=== PATIENT | male | born 1945 | race Caucasian/White ===

== ENCOUNTER 2018-08-24 01:36 | Emergency (ER) | payer MEDICARE, BC ==
[2018-08-24] MEDS ORDERED: MVI, Adult with Vitamin K 10 ML, Folic Acid 1 MG, Thiamine 100 MG in Lactated Ringers 1... IV ONE ×4 (02:52)
--- NOTE | 2018-08-24 03:06 | EDM.PDOC ---
ED HPI GENERAL MEDICAL PROBLEM - General Chief Complaint: Head Injury Stated Complaint: CONCUSSION Time Seen by Provider: 08/24/18 02:55 Source of Information: Reports: Patient, EMS History Limitations: Reports: Intoxication - History of Present Illness INITIAL COMMENTS - FREE TEXT/NARRATIVE: EMS state patrons in bar saw pt fall off bar stool and hit head and went unconscious. pt states can't remember that. presently has some pain in head and face does hurt. - Related Data Allergies Allergy/AdvReac Type Severity Reaction Status Date / Time No Known Allergies Allergy Verified 08/24/18 01:52 Home Meds: Home Meds . [Unable to Verify Home Med List] 08/24/18 [History] Past Medical History - Past Health History Medical/Surgical History: Denies Medical/Surgical History Social & Family History - Tobacco Use Smoking Status *Q: Current Status Unknown - Caffeine Use Caffeine Use: Reports: Coffee - Alcohol Use Date of Last Drink: 08/24/18 - Recreational Drug Use Recreational Drug Use: No ED ROS GENERAL - Review of Systems Review Of Systems: ROS reveals no pertinent complaints other than HPI. ED EXAM, HEAD INJURY - Physical Exam Exam: See Below Exam Limited By: No Limitations General Appearance: WD/WN, No Apparent Distress, Other (sleeping arousable) Head: Facial Swelling, Facial Tenderness, Other (cheeks). No: Bailey's Sign, Raccoon Eyes Nexus Criteria: Evidence of Intoxication. No: Posterior, Midline Cervical Tenderness, Altered Level of Consciousness, Focal Neurological Deficit, Painful Distraction Injuries Eyes: Bilateral Eye: PERRL (pupils ER @ 4mm) Ears: Hearing Grossly Normal Nose: Normal Inspection Throat/Mouth: Normal Voice, No Airway Compromise Neck: Non-Tender, Full Range of Motion, Normal Alignment, Normal Inspection Respiratory: No Respiratory Distress, Lungs Clear, Normal Breath Sounds Cardiovascular: Regular Rate, Rhythm GI/Abdominal Exam: Soft, Non-Tender Neurologic: Other (intox) Skin: Normal Color, Warm/Dry - [place] Coma Score Best Eye Response ([place]): (3) Open to Voice Best Verbal Response ([place]): (4) Confused Conversation Best Motor Response ([place]): (6) Obeys Commands [place] Total: 13 Course - Vital Signs Last Recorded V/S: Last Vital Signs Temp 36.4 C 08/24/18 05:47 Pulse 76 08/24/18 05:47 Resp 18 08/24/18 05:47 BP 132/76 08/24/18 05:47 Pulse Ox 100 08/24/18 05:47 - Orders/Labs/Meds Labs: Laboratory Tests 08/24/18 08/24/18 Range/Units 03:10 03:10 WBC 5.4 (5.0-10.0) 10^3/uL RBC 4.17 L (4.6-6.2) 10^6/uL Hgb 13.7 L (14.0-18.0) g/dL Hct 41.2 (40.0-54.0) % MCV 98.8 (80-100) fL MCH 32.9 (27.0-34.0) pg MCHC 33.3 (33.0-35.0) g/dL Plt Count 127 L (150-450) 10^3/uL Neut % (Auto) 78.8 H (42.2-75.2) % Lymph % (Auto) 12.6 L (20.5-50.1) % Mclean % (Auto) 6.7 (2-8) % Eos % (Auto) 1.5 (1.0-3.0) % Baso % (Auto) 0.4 (0.0-1.0) % Sodium 132 L (135-145) mmol/L Potassium 3.5 L (3.6-5.0) mmol/L Chloride 96 L (101-111) mmol/L Carbon Dioxide 23.0 (21.0-31.0) mmol/L Anion Gap 16.5 BUN 13 (7-18) mg/dL Creatinine 1.0 (0.6-1.3) mg/dL Est Cr Clr Drug Dosing 72.16 mL/min Estimated GFR (MDRD) > 60 BUN/Creatinine Ratio 13.00 Glucose 121 H (74-105) mg/dL Calcium 8.5 (8.4-10.2) mg/dl Total Bilirubin 0.8 (0.2-1.0) mg/dL AST 23 (10-42) IU/L ALT 16 (10-60) IU/L Alkaline Phosphatase 46 (42-121) IU/L Total Protein 6.4 L (6.7-8.2) g/dl Albumin 4.2 (3.2-5.5) g/dl Globulin 2.2 Albumin/Globulin Ratio 1.91 Ethyl Alcohol 223 mg/dL Meds: Medications Discontinued Medications Generic Name Dose Route Start Last Admin Trade Name Luke PRN Reason Stop Dose Admin Multivitamins/Minerals 10 ml/ 1,011.2 mls @ 999 mls/hr 08/24/18 02:52 03:07 Folic Acid 1 mg/ Thiamine HCl IV 08/24/18 03:52 999 mls/hr 100 mg/ Lactated Ringer's ONETIME ONE Administration - Re-Assessments/Exams Free Text/Narrative Re-Assessment/Exam: 08/24/18 05:39 pt woke up dashed to bathroom. Departure - Departure Time of Disposition: 05:55 Disposition: Home, Self-Care 01 Condition: Fair Clinical Impression: Concussion with less than 1 hour loss of consciousness Contusion of face Qualifiers: Encounter type: initial encounter Qualified Code(s): S00.83XA - Contusion of other part of head, initial encounter - Discharge Information Instructions: Head Injury, Adult, [id number] Forms: ED Department Discharge Additional Instructions: 1) don't drink alcohol 2) take tylenol as needed for discomfort 3) recheck if there is any change or concern
[2018-08-24 03:38] LABS: ANION GAP 16.5; CHLORIDE,CL 96 mmol/L (101-111); SODIUM,NA 132 mmol/L (135-145)
== END 2018-08-24 05:59 | disposition home or self-care (01) ==
LOC: DL.ED 01:36
DX: S06.0X9A Concussion with loss of consciousness of unspecified duration, initial encounter (principal); S00.83XA Contusion of other part of head, initial encounter; W08.XXXA Fall from other furniture, initial encounter; Y92.838 Other recreation area as the place of occurrence of the external cause
CPT/HCPCS: 36415; 70450; 70486; 80053; 85025; 96365; 96366; 99284; G0480; J3411; J7120; J3490

== ENCOUNTER 2022-05-01 04:20 | Emergency (ER) | payer BC ==
[2022-05-01] MEDS ORDERED: Sodium Chloride 0.9% 1,000 ML IV ONE (16:30)
[2022-05-01] MEDS ORDERED: Diltiazem 25 MG/5 ML SDV IV ONE (16:38)
[2022-05-26 10:46] LABS: ANION GAP 13.8 mEq/L (7-13); CHLORIDE,CL 101 mmol/L (98-107); ESTIMATED GFR 70 mL/min (>=60); SODIUM,NA 138 mmol/L (136-145)
[2022-05-26 10:47] LABS: PTT,PARTIAL THROMBOPLSTIN TIME 30.9 SEC (22.0-34.0)
[2022-05-26 10:49] LABS: CORONAVIRUS COVID-19 NAA NEGATIVE (NEGATIVE)
== END 2022-05-01 17:50 | disposition left against medical advice (07) ==
LOC: DL.ED 04:20 → EDSTATUS 08:04 → DL.ED 17:50
DX: I49.9 Cardiac arrhythmia, unspecified (principal); J18.9 Pneumonia, unspecified organism; Z20.822 Contact with and (suspected) exposure to COVID-19
CPT/HCPCS: 0240U; 36415; 71045; 80053; 83735; 84443; 84484; 85025; 85610; 85730; 99285; J3490; J7030

== ENCOUNTER 2023-11-20 15:41 | Emergency (ER) | payer MEDICARE, BC ==
[2023-11-20] MEDS: Sodium Chloride 0.9% 10 ML Syringe FLUSH PRN (16:00)
[2023-11-20 16:16] LABS: MEAN CORPUSCULAR HEMOGLOBIN 32.7 pg (27.0-34.0); MEAN CORPUSCULAR HGB CONC 34.1 g/dL (33.0-35.0); MEAN CORPUSCULAR VOLUME 95.8 fL (80-100); PLATELET COUNT,PLT 132 10^3/uL (150-450); RED BLOOD CELL COUNT 4.28 10^6/uL (4.6-6.2); WHITE BLOOD CELL COUNT,WBC 10.3 10^3/uL (5.0-10.0)
[2023-11-20] MEDS: Aspirin 81 MG Tab.Chew PO ONE (16:17)
[2023-11-20] MEDS: Diltiazem 25 MG/5 ML SDV IVPUSH ONE (16:20)
[2023-11-20 16:27] LABS: BASOPHILS PERCENT AUTO 0.2 % (0.0-1.0); LYMPHOCYTES PERCENT AUTO 8.6 % (20.5-50.1); MONOCYTES PERCENT AUTO 7.5 % (2-8); NEUTROPHILS PERCENT AUTO 83.7 % (42.2-75.2)
[2023-11-20 16:28] LABS: ALBUMIN 3.8 g/dL (3.4-5.0); BILIRUBIN TOTAL 1.5 mg/dL (0.2-1.0); BUN/CREATININE RATIO 15.8 (No establ ref range); CALCIUM 8.9 mg/dL (8.5-10.1); CREATININE 1.46 mg/dL (0.70-1.30); EST CRCL DRUG DOSING (CG) 45.84 mL/min; PROTEIN TOTAL,TP 7.6 g/dL (6.4-8.2)
[2023-11-20 16:39] LABS: PROTHROMBIN TIME 9.9 SEC (9.0-12.0)
[2023-11-20] MEDS: cefTRIAXone 1 GM Vial IVPUSH ONE (17:01)
[2023-11-20] MEDS: Azithromycin 500 MG in Sodium Chloride 0.9% 250 ML IV ONE (17:03)
[2023-11-20] MEDS: Azithromycin 250 MG Tab PO ONE (17:05)
[2023-11-20] MEDS: Acetaminophen 325 MG Tab PO ONE (17:10)
[2023-11-20 17:15] LABS: CORONAVIRUS COVID-19 NAA NEGATIVE (NEGATIVE); INFLUENZA A NAA NEGATIVE (NEGATIVE); INFLUENZA B NAA NEGATIVE (NEGATIVE); RESPIRATORY SYNCYTIAL VIR NAA POSITIVE (NEGATIVE)
[2023-11-20 17:15] LABS: LYMPHOCYTES % ATYPICAL MANUAL 1 %; LYMPHOCYTES PERCENT MAN 14 % (20-50); MONOCYTES PERCENT MAN 4 % (2-8); SEG NEUTROPHILS PERCENT MAN 81 % (42-75)
[2023-11-20] MEDS: Albuterol/Ipratropium 3.0-0.5 MG/3 ML Neb Soln NEB ONE (17:20)
[2023-11-20] MEDS: predniSONE 20 MG Tab PO ONE (17:59)
== END 2023-11-20 18:15 | disposition home or self-care (01) ==
LOC: DL.ED 15:41
DX: J18.9 Pneumonia, unspecified organism (principal); R00.0 Tachycardia, unspecified; B97.4 Respiratory syncytial virus as the cause of diseases classified elsewhere
CPT/HCPCS: 0241U; 36415; 71046; 80053; 83605; 83880; 84484; 85025; 85610; 87040; 93005; 96374; 96375; 99285; A9270; J0696; J3490; J7512; J7620-GY

== ENCOUNTER 2025-06-06 11:27 | Emergency (ER) | payer BC ==
[2025-06-06] MEDS: Iopamidol 612 MG/ML 100 ML Bottle IVPUSH ONE (12:06)
[2025-06-06] MEDS ORDERED: Sodium Chloride 0.9% 10 ML Syringe FLUSH PRN (12:06)
[2025-06-06 12:09] LABS: BASOPHILS PERCENT AUTO 0.5 % (0.0-1.0); EOSINOPHILS PERCENT AUTO 0.8 % (1.0-3.0); LYMPHOCYTES PERCENT AUTO 17.2 % (20.5-50.1); MONOCYTES PERCENT AUTO 8.4 % (2-8); NEUTROPHILS PERCENT AUTO 73.1 % (42.2-75.2); PLATELET COUNT,PLT 140 10^3/uL (150-450); RED BLOOD CELL COUNT 4.17 10^6/uL (4.6-6.2); WHITE BLOOD CELL COUNT,WBC 6.3 10^3/uL (5.0-10.0)
[2025-06-06 12:24] LABS: A/G RATIO 1.3; ALANINE AMINOTRANSFERASE,ALT 14.0 U/L (16-63); ASPARTATE AMNIOTRANSFERASE,AST 13.0 U/L (15-37); BILIRUBIN TOTAL 1.1 mg/dL (0.2-1.0); BLOOD UREA NITROGEN,BUN 20.0 mg/dL (7-18); CARBON DIOXIDE,CO2 27.0 mmol/L (21-32); CHLORIDE,CL 104.0 mmol/L (98-107); CREATININE 1.74 mg/dL (0.70-1.30); EST CRCL DRUG DOSING (CG) 38.64 mL/min; GLUCOSE RANDOM 140.0 mg/dL (70-99); POTASSIUM,K 3.4 mmol/L (3.5-5.1); PROTEIN TOTAL,TP 6.8 g/dL (6.4-8.2); SODIUM,NA 141.0 mmol/L (136-145)
[2025-06-06 12:28] LABS: ESTIMATED GFR 40.0 mL/min (>=60)
[2025-06-06 12:32] LABS: APPEARANCE,URINE CLEAR (CLEAR); GLUCOSE,URINE NEGATIVE (NEGATIVE); OCCULT BLOOD,URINE MODERATE (NEGATIVE)
[2025-06-06 12:43] LABS: EPITHELIAL CELLS,URINE FEW /HPF (NOT SEEN)
[2025-06-06] MEDS: Ketorolac 30 MG/ML SDV IVPUSH ONE (13:48)
[2025-06-06] MEDS: Take Home: Acetaminophen/HYDROcodone 325-5 MG, 5 Tab Pack PO ONE (14:08)
[2025-06-06 14:20] VITALS: BP 128/72; PULSE 68
== END 2025-06-06 14:16 | disposition home or self-care (01) ==
LOC: DL.ED 11:27
DX: N13.2 Hydronephrosis with renal and ureteral calculous obstruction (principal); I71.22 Aneurysm of the aortic arch, without rupture; Z79.899 Other long term (current) drug therapy
CPT/HCPCS: 36415; 74177; 80053; 81001; 83605; 85025; 87040; 87186; 96361; 96374; 99284; 99284-25; A9270-GY; J1885; J7030; Q9967

== ENCOUNTER 2025-06-12 13:00 | Emergency (ER) | payer BC ==
[2025-06-12] MEDS ORDERED: Sodium Chloride 0.9% 10 ML Syringe FLUSH PRN (13:12)
[2025-06-12 13:30] LABS: BASOPHILS PERCENT AUTO 0.7 % (0.0-1.0); EOSINOPHILS PERCENT AUTO 1.3 % (1.0-3.0); LYMPHOCYTES PERCENT AUTO 21.7 % (20.5-50.1); MONOCYTES PERCENT AUTO 7.3 % (2-8); NEUTROPHILS PERCENT AUTO 69.0 % (42.2-75.2); PLATELET COUNT,PLT 158 10^3/uL (150-450); RED BLOOD CELL COUNT 4.02 10^6/uL (4.6-6.2); WHITE BLOOD CELL COUNT,WBC 4.5 10^3/uL (5.0-10.0)
[2025-06-12 13:47] LABS: A/G RATIO 1.3; ALANINE AMINOTRANSFERASE,ALT 12 U/L (16-63); ASPARTATE AMNIOTRANSFERASE,AST 16 U/L (15-37); BILIRUBIN TOTAL 0.9 mg/dL (0.2-1.0); BLOOD UREA NITROGEN,BUN 17 mg/dL (7-18); CARBON DIOXIDE,CO2 26 mmol/L (21-32); CHLORIDE,CL 106 mmol/L (98-107); CREATININE 1.10 mg/dL (0.70-1.30); EST CRCL DRUG DOSING (CG) 61.73 mL/min; GLUCOSE RANDOM 107 mg/dL (70-99); POTASSIUM,K 3.6 mmol/L (3.5-5.1); PROTEIN TOTAL,TP 7.0 g/dL (6.4-8.2); SODIUM,NA 142 mmol/L (136-145)
[2025-06-12 13:48] LABS: ESTIMATED GFR 69 mL/min (>=60)
[2025-06-12 13:50] LABS: LACTIC ACID 1.0 mmol/L (0.4-2.0)
[2025-06-12 13:55] LABS: INR 1.0 (0.9-1.2); PTT,PARTIAL THROMBOPLSTIN TIME 25.6 SEC (22.0-34.0)
[2025-06-12] MEDS: Ondansetron 4 MG/2 ML SDV IVPUSH ONE (14:02)
[2025-06-12] MEDS: Iopamidol 612 MG/ML 100 ML Bottle IVPUSH ONE (14:05)
[2025-06-12 15:04] LABS: APPEARANCE,URINE SLIGHTLY CLOUDY (CLEAR); GLUCOSE,URINE NEGATIVE (NEGATIVE); OCCULT BLOOD,URINE LARGE (NEGATIVE)
[2025-06-12 15:11] LABS: SQUAMOUS EPITHELIAL CELLS,UR RARE /HPF (NOT SEEN)
[2025-06-12] MEDS: Ketorolac 30 MG/ML SDV IVPUSH ONE (16:07)
== END 2025-06-12 16:54 | disposition home or self-care (01) ==
LOC: DL.ED 13:00
DX: N13.6 Pyonephrosis (principal); Z91.048 Other nonmedicinal substance allergy status; Z79.899 Other long term (current) drug therapy
CPT/HCPCS: 36415; 74178; 80053; 81001; 83605; 85025; 85610; 85730; 86140; 93005; 96374; 96375; 99284; A9270; J1171; J1885; J2405; Q9967